=== PATIENT | female | born 1990 | race Caucasian/White ===

== ENCOUNTER 2023-10-20 00:16 | Inpatient (IN) | payer BC, SELFPAY ==
[2023-10-19 17:52] VITALS: BP 128/91
[2023-10-19 18:44] VITALS: BP 134/78; BMI 37.2
[2023-10-19] MEDS: NSS 1000 IV ×2 (19:38→21:44)
[2023-10-19] MEDS: DUONEB 3 ML INH ×2 (19:40→21:12)
[2023-10-19] MEDS: DECADRON 10 MG IV (19:40)
[2023-10-19 19:51] LABS: % Basophils 0.6 % (0-2); % Eosinophils 2.1 % (0-6); % Immature Granulocytes 0.3 % (0-0.5); % Lymphocytes 6.3 % (20.5-51.1); % Monocytes 5.7 % (1.7-9.3); Absolute Basophils 0.1 10^3/uL (0-0.2); Absolute Eosinophils 0.2 10^3/uL (0-0.7); Absolute Lymphocytes 0.7 10^3/uL (1.2-3.4); Absolute Monocytes 0.7 10^3/uL (0.1-0.6); Absolute Neutrophils 9.8 10^3/uL (1.4-6.5); Hematocrit 38.4 % (37.0-47.0); Hemoglobin 13.5 g/dL (12.0-16.0); Mean Corp Hgb Conc. 35.2 g/dL (33.0-37.0); Mean Corpuscular Hgb 30.2 pg (27.0-31.0); Mean Corpuscular Volume 85.9 fL (81.0-99.0); Mean Platelet Volume 9.8 fL (7.4-10.4); Nucleated Red Blood Cells % 0 %; Platelet Count 201 10^3/uL (130-400); Red Blood Cell Count 4.47 10^6/uL (4.20-5.40); Red Cell Dist. Width 12.4 % (11.5-14.5); White Blood Cell Count 11.5 10^3/uL (4.8-10.8)
[2023-10-19 20:08] LABS: ALT (SGPT) 16 U/L (0-35); AST (SGOT) 19 U/L (14-36); Albumin 4.4 g/dl (3.5-5.0); Alkaline Phosphatase 58 U/L (38-126); Blood Urea Nitrogen 9 mg/dl (7-17); Calcium 9.7 mg/dl (8.4-10.2); Carbon Dioxide 22 mmol/L (22-30); Chloride 106 mmol/L (98-107); Estimated Creatinine Clearance > 125 ml/min; Glucose 103 mg/dl (70-99); Sodium 139 mmol/L (135-145); Total Bilirubin 0.6 mg/dl (0.2-1.3); Total Protein 7.4 g/dl (6.3-8.2); eGFR > 60.00
[2023-10-19] MEDS: ZITHROMAX 500 MG PO (21:12)
[2023-10-19] MEDS: ROCEPHIN 2000 MG IV (21:13)
--- NOTE | 2023-10-19 23:06 | ED.GENMED ---
History of Present Illness
General
Chief Complaint: Breathing Problem
Source: patient
Exam Limitations: none
Time Seen by Provider: 10/19/23 18:54
Nursing documentation reviewed up to this point in time: agreed with
Travel History
Have you had any contact with someone who has COVID-19?: No
Do you have any symptoms of coronavirus? Fever > 100 degrees, chills, cough, shortness of breath, sore throat, loss of taste or smell, muscle aches, or headache?: No
History of Present Illness
History of Present Illness:
33-year-old female presenting to the emergency department today with concerns of shortness of breath cough chest congestion worsening over the past few days noticing wheezing today went to urgent care sent to the ER for further assessment. Does
have a remote history of asthma.
Past History
Past History
ED Past Medical History: None
ED Past Surgical History: None
Social History
Tobacco: Non-smoker
Alcohol: None
Drug: None
Personal:
Living: with family
Employment: Employed
Family History
Family History: Unable to obtain (Daughter's been sick with ear infection GI illness)
Review of Systems
Review of Systems
Allergies reviewed?: Yes
All Other Systems: ROS reviewed and negative except as documented in HPI and ROS
Phy Exam
Physical Exam
Physical Exam:
GENERAL: Alert , in no apparent distress
EYE: pupils equal and reactive
NECK: Supple, no significant adenopathy.
ENT: o/p clr, mmm.
CARDIAC: Tachycardic, regular
LUNGS: Diffuse end expiratory wheezing
ABDOMEN: Soft, without focal tenderness, no r/g, no cvat
NEUROLOGICAL: Alert and oriented, no focal neuro deficits
SKIN: Warm and dry, skin intact.
MUSCULOSKELETAL: No edema, well perfused.
PSYCH: Normal and appropriate interaction.
Course
Orders/Labs/Results
Orders:
Orders
10/19/23 19:23
0.9% Sodium Chloride 1000 ml [Nss] 1,000 ml IV BOLUS
Dexamethasone Sod Phosphate [Decadron] 10 mg IV NOW STA
Ipratropium/Albuterol Sulfate [Duoneb] 3 ml INH R NOW STA
CR Chest - 2 Views Urgent
Comment:
Reason For Exam: cough fever
10/19/23 19:42
Complete Blood Count/With Diff Urgent
Comprehensive Metabolic Panel Urgent
HCG, Serum Qualitative Screen Urgent
Comment: ADD-ON
10/19/23 20:58
EKG [Electrocardiogram (*1)] Urgent
Reason for Study: Bradycardia / Tachycardia
Azithromycin [Zithromax] 500 mg PO NOW STA
CefTRIAXone [Rocephin] 2,000 mg IV NOW STA
Ipratropium/Albuterol Sulfate [Duoneb] 3 ml INH R NOW ONE
10/19/23 20:59
EKG- Treatment ONCE
10/19/23 21:11
Sterile Water [Sterile Water For Injection] 20 ml .ROUTE .STK-MED
10/19/23 21:36
0.9% Sodium Chloride 1000 ml [Nss] 1,000 ml IV BOLUS
10/19/23 23:06
Add On- LAB Urgent
Tests Added?: hcg serum
10/19/23 23:47
Procalcitonin Routine
PCT Algorithmm Indication: Respiratory
10/19/23 23:50
COVID-19 Antigen Urgent
Source: Nasal Swab
Influenza A+B Rapid Molecular Urgent
CONCHITA Source: Nasal Swab
Specimen Description:
10/20/23 00:02
CT Chest Pe Study Urgent
Reason For Exam: tachy sob
10/20/23 00:05
Admit/Transfer Patient As Directed
Co-Sign Provider:
Level of Care: Inpatient admission
Assign to:: Telemetry
Physician / Group: htay
Diagnosis: Acute asthmatic bronchitis with diffuse bronchospasm
Reason for Telemetry: Other
Other Reason for Telemetry: Acute asthmatic bronchitis with diffuse bronchospasm
Date to Stop Telemetry: 10/22/23
Time to Stop Telemetry: 11:00
Reason for Hospitalization: Acute asthmatic bronchitis with diffuse bronchospasm
Expected length of stay greater than two midnights?: Yes
ELOS- Estimated Length of Stay in days: 3
I certify the patient meets the requirements for IP care: Yes
10/20/23 00:06
Code Status As Directed
Resuscitation Status: Full Code
10/20/23 01:18
Acetaminophen [Tylenol] 650 mg PO Q4HPRN PRN
Bisacodyl [Dulcolax] 10 mg RECTAL [id number] PRN
Docusate W/Senna [Senokot-S] 1 tablet PO BIDPRN PRN
Ipratropium/Albuterol Sulfate [Duoneb] 3 ml INH R Q4HPRN PRN
Polyethylene Glycol Powder [Miralax] 17 grams PO DAILYPRN PRN
10/20/23 01:18
Activity As Directed
Activity Level: With Assistance
Vital Signs As Directed
Frequency: Per unit guidelines
DX Deep Vein Thrombosis Video Routine
10/20/23 Breakfast
Regular
At Your Request: Full Participation
MethylPREDNISolone PF [Solu-Medrol Pf] 40 mg IV Q6H
10/20/23 08:00
Ipratropium/Albuterol Sulfate [Duoneb] 3 ml INH R QID
10/20/23 18:00
Enoxaparin Sodium [Lovenox] 40 mg SC QPM
10/22/23 11:00
DC Protocol for Telemetry ONCE
Abnormal Lab Results
10/19/23
19:42
WBC 11.5 H 10^3/uL
(4.8-10.8)
Absolute Neuts (auto) 9.8 H 10^3/uL
(1.4-6.5)
Absolute Lymphs (auto) 0.7 L 10^3/uL
(1.2-3.4)
Absolute Monos (auto) 0.7 H 10^3/uL
(0.1-0.6)
Neutrophils % 85.0 H %
(42.2-75.2)
Lymphocytes % 6.3 L %
(20.5-51.1)
Creatinine 0.5 L mg/dL
(0.6-1.0)
Glucose 103 H mg/dl
(70-99)
10/19/23 19:42
10/19/23 19:42
Vital Signs
Initial and Last Documented VS:
Initial Vital Signs
Temp Pulse Resp BP Pulse Ox
98.5 F 117 22 128/91 94
10/19/23 17:52 10/19/23 17:52 10/19/23 17:52 10/19/23 17:52 10/19/23 17:52
Last Documented Vital Signs
Temp Pulse Resp BP Pulse Ox
98.1 F 108 18 143/89 94
10/20/23 07:20 10/20/23 07:20 10/20/23 07:20 10/20/23 07:20 10/20/23 07:20
MDM/Problems Addressed
MDM/Problems Addressed:
33-year-old female presenting to the emergency department today with concerns of shortness of breath cough chest congestion over the past few days. Denies specific fevers. Does have a remote history of asthma was seen in urgent care sent to the ER
for further assessment. Upon arrival here patient tachycardic but otherwise pulse ox in the low 90 labs showing white count of 11.5 otherwise unremarkable chest x-ray with possible signs of pneumonia patient was started on antibiotic. Otherwise
did have an expiratory wheeze and was started on DuoNeb as well as steroid. Patient was monitored here still with ongoing significant shortness of breath with any light exertion as well as ongoing tachycardia an hour and a half after most recent
nebulizer treatment. Concerning this additional imaging obtained for further assessment.
*Critical Care Note
Total Time (30-74mins, 75-104mins- exclusive of procedures): Not Applicable
ED Attending Note
-
Portions of this chart may have been created with voice recognition software.� Occasional wrong word or��sound alike� substitutions may have occurred due to the inherent limitations of voice recognition software.
Discharge Plan
Departure
Patient Disposition: Admit
Date of Disposition: 10/19/23
Time of Disposition: 23:42
Admit to: Telemetry
Admit to doctor: Htay
Presentation/result/management discussed w/ accepting MD/DO: Hospitalist
Patient with high blood pressure during this ER visit?: No
Condition: Good
Covid-19: Not Applicable
Discharge Problem:
Wheeze, Pneumonia
Interventions
Interventions:
*Risk Screen - Suicide Last Done: 10/19/23 17:52
*General Assessment Last Done: 10/19/23 17:52
*Neglect/Abuse Screening Last Done: 10/19/23 17:52
ED- Fall Risk Assessment Last Done: 10/20/23 01:10
*ED COVID-19 Vaccine History Last Done: 10/20/23 02:11
*Nursing Disposition Last Done: 10/20/23 01:10
ED- Cardiac Assessment Last Done: 10/19/23 18:47
ED- Pulmonary Assessment Last Done: 10/19/23 18:47
Discharge Date and Time
Discharge Date/Time: 10/20/23 01:15
[2023-10-19 23:17] LABS: HCG, Serum Qualitative Screen Negative
[2023-10-19 23:18] VITALS: BP 129/80
[2023-10-20] VITALS (8 sets, daily range): BP systolic 126–143; BP diastolic 70–89; BMI 35.8
--- NOTE | 2023-10-20 00:02 | HPS.HSE ---
Addendum entered and electronically signed by Harish Carmen MD 10/20/23 13:11:
Final CTC PE report
1. Patchy airspace disease within both lower lobes suspicious for multifocal pneumonia.
2. No gross evidence for pulmonary embolism. No right heart strain.
Addendum entered and electronically signed by Harish Carmen MD 10/20/23 01:32:
[facility] for PE report by [facility]
- No PE
- b/l patchy PNA
- on IV CFTZ and PO Z max
Original Note:
Family Physician
-
Family Physician: Juan Adkins
Chief Complaint
-
SoB and wheeze , sent form [facility]
History of Present Illness
HPI
33F non smoker , remote HX childhood exercised induced asthma sent to ER fron [facility] for evaluation asthma falre
Acute onset URTI symptoms such as cough , chest congestion
- for last few days
- NO known contact exposure wit Covid and flu
- productive cough wiith dark green sputume getting intermodal customer service green
- denied fever today
- associated chest discomfort
- onset of wheezing today
- evaluated at [facility] and sent DH ER
At ER
tachycardic
tachypneic
POx in mid 90s on RA
Medical History
Past Medical History
Past Medical History: Reports Asthma (remote HX )
Past Surgical History: Reports None
Social History
Tobacco: Non-smoker
Alcohol: None
Personal:
Living: With Family
Employment: Employed
Family History
Family History: Not pertinent
Allergies / Home Medications
Allergies reflects when Allergies were last updated in [facility].
Home Medications with original date entered in [facility]
Allergy/Medication List:
Allergies
Allergy/AdvReac Type Severity Reaction Status Date / Time
nickel Allergy Rash Verified 10/19/23 17:51
Home Medications
albuterol sulfate 2.5 mg/3 mL (0.083 %) solution for nebulization 2.5 mg (3 mL) inhalation Q4H PRN shortness of breath or wheezing #180 mL 04/07/23
Review of Systems
-
Constitutional: Reports No Symptoms
EENT: Reports No Symptoms
Respiratory: Reports See HPI, Cough and Trouble Breathing
Cardiac: Reports No Symptoms
Abdomen/GI: Reports No Symptoms
: Reports No Symptoms
Musculoskeletal: Reports No Symptoms
Skin: Reports No Symptoms
Neurological: Reports No Symptoms
Endocrine: Reports No Symptoms
Hematologic/Lymphatic: Reports No Symptoms
Psych: Reports No Symptoms
Physical Exam
Vital Signs
Vital Signs
Temp Pulse Resp BP Pulse Ox
98.3 F 113 26 129/80 94
10/19/23 23:18 10/19/23 23:40 10/19/23 23:18 10/19/23 23:18 10/19/23 23:40
Physical Exam
General: Other (loos sick )
HEENT: NormoCephalic, Anicteric and Moist mucous membranes
Respiratory: Other (symmetric AE , reducd BS , minimal exp wheeze on my exam in both chest )
Cardiac: S1/S2, Regular Rhythm and Tachycardia
Breast: Deferred by me
GI: Soft, Non Tender and Non Distended
Genito-urinary: Deferred by me
Musculoskeletal: No Edema
Skin: Warm and Dry
Psych: Calm
Laboratory Results
-
10/19/23 19:42
10/19/23 19:42
Laboratory Results
Total Bilirubin 0.6 mg/dl (0.2-1.3) 10/19/23 19:42
AST 19 U/L (14-36) 10/19/23 19:42
ALT 16 U/L (0-35) 10/19/23 19:42
Alkaline Phosphatase 58 U/L (38-126) 10/19/23 19:42
Data Reviewed
-
Diagnostic Radiology: Report Reviewed by me
CT Scan: Other (pending CTC PE protocol )
Lab Data: Labs Reviewed by me
Impression/Plan
-
Reviewed VS: afebrile tachycardic 110s normotensive tachypnic 20-26 POx mid 90s on RA
Data
WCC 11.5
Unremarkable BMP and LFTs
NEG HCG
Pending ( Covid Ag and Flu A & B)
Pending PCT
10/19/23 CXR: Faint opacity in the right lung base, atelectasis versus mild pneumonia.
Pending CTC PE protocol
NO PRIOR hospitalist admission:
ASSESSMENT & PLAN
Pending Rx reconciliation
Acute asthmatic bronchitis : Improving bronchospasm to ER Tx
Suspect evolving PNA at Rt Lung base: afebrile , productive colored sputum with leucocytosis. No fever
CXR : Faint opacity in the right lung base
Remote HX childhood exercised induced Asthma but not on regular INH
- Pending ( Covid Ag and Flu A & B)
- check PCT
- cont IV CFTZ and PO Z max for now
- IV Methylprednisone in place of Decadron
- DuoNeb qid and ORN
- O2 to keep POx > 94
- Pul consult
DVT Px: LMWH
Code: Full
IP TLM
[2023-10-20 00:59] LABS: COVID-19 Antigen Negative (Negative)
[2023-10-20 01:16] LABS: Procalcitonin < 0.05 ng/ml (0.0-0.25)
--- NOTE | 2023-10-20 02:07 | PTCARENOTE ---
Pt. received to 2S from ED via stretcher and able to walk to room bed with steady gait, however becoming dyspneic on exertion and coughing. Otherwise VSS, pt. A&Ox3, in NAD, o2 sat 93% on room air. Pt. oriented to room and unit policies, bed locked
and in lowest position, side rails in place, and call light within reach.
[2023-10-20] MEDS: DUONEB 3 ML INH ×5 (02:38→19:46)
[2023-10-20] MEDS: MELATONIN 5 MG PO (02:39)
[2023-10-20] MEDS: ROBITUSSIN DM 5 ML PO (02:41)
[2023-10-20] MEDS: SOLU-MEDROL PF 40 MG IV ×4 (05:58→23:58)
[2023-10-20] MEDS: FLUSH (NSS) 2 FLUSH IV ×2 (05:59→12:03)
--- NOTE | 2023-10-20 09:49 | CON.PUL ---
Consultation
Consultation Request
Date/Time Consultation Requested: 10/20/2023-8 AM
Date/Time Consultation Performed: 10/20/2023-8:15 AM
Requesting Provider: Hospitalist
Performing Provider: Dr. Li
Reason for Consultation: Pneumonia
Medical History
-
Chief Complaint: Shortness of breath
History of Present Illness:
33-year-old female with probable underlying asthma who is a lifelong non-smoker with history of pneumonia last year treated as an outpatient presented with pneumonia and asthma exacerbation-pulmonary consulted for pneumonia/asthma exacerbation and
10/20/23. She is feeling much improved. Yesterday she could not complete sentences. Her shortness of breath with exertion is also improved. She denies any chest pain, chest tightness, abdominal pain, reflux, productive cough, but admits to
wheezing. She does not complain of lower extremity edema or weakness.
Past Medical History
Past Medical History: None (Asthma. Pneumonia 2022.)
Social History
Tobacco: Non-smoker
Alcohol: None
Drug: None
Personal:
Living: With Family
Occupational Exposures: No known asbestos exposure
Environmental Exposures: No known tuberculosis exposure
Family History
Family History: Reviewed & Not Pertinent
Allergies / Home Medications
Allergies
Allergy/AdvReac Type Severity Reaction Status Date / Time
nickel Allergy Rash Verified 10/19/23 17:51
Home Medications
�Medication �Instructions �Recorded �Confirmed �Last Taken �Type
albuterol sulfate 2.5 mg/3 mL 2.5 mg (3 mL) inhalation Q4H PRN 04/07/23 10/19/23 Unknown Rx
(0.083 %) solution for nebulization shortness of breath or wheezing
#180 mL
Review of Systems
-
Unable to Obtain full review of systems at this time due to: Other (Per HPI)
Vitals / Labs / Diagnostic Testing
Vital Signs
Temp Pulse Resp BP Pulse Ox
98.1 F 108 18 143/89 94
10/20/23 07:20 10/20/23 07:20 10/20/23 07:20 10/20/23 07:20 10/20/23 07:20
Lab Data
10/19/23 19:42
10/19/23 19:42
Microbiology
10/20/23 00:33 Nasal Swab Influenza Types A & B (J[facility]AN) - Final
Negative for Influenza A & B, NAAT
Negative results must be combined with clinical observations
and patient history.
Nucleic Acid Amplification test (NAAT)performed on the
[employer] platform.
Diagnostic Testing:
Physical Exam
-
Exam:
Well-nourished and well-developed in no apparent distress
HEENT-atraumatic, normocephalic
Neck-supple, no JVD, no bruit
Heart-regular rate and rhythm-no murmurs, rubs or gallops
Chest with diminished breath sounds, prolonged expiratory time, right rare right basilar crackles and expiratory wheezes throughout
Back without tenderness
Abdomen-soft, nontender, nondistended, no hepatosplenomegaly
Extremities-no cyanosis, clubbing, edema and good peripheral pulses
Integument-intact, no rashes, lesions or ecchymosis
Neurology-alert and oriented, nonfocal motor and sensory exam
Assessment
-
33-year-old female with probable underlying asthma who is a lifelong non-smoker with history of pneumonia last year treated as an outpatient presented with pneumonia and asthma exacerbation-pulmonary consulted for pneumonia/asthma exacerbation and
10/20/23.
Assessment
Qmqtxopov-[id number]
Asthma-suspect mild intermittent with acute exacerbation
Leukocytosis-negative procalcitonin
Conditions present prior to admission:
Asthma
Pneumonia 2022
Obesity-BMI 36
Plan
Respiratory decompensation likely related to pneumonia with subsequent asthma exacerbation
Monitor for progression to severe exacerbation-appears to have turned the corner and unlikely to progress
Respiratory rate >30
Tachycardia >120
accessary muscle use
Inability to speak full sentences
Inability be supine
Pulsus paradox, etc.
Monitor PEF
Obtain ABG if necessary to assess for hypercapnia
Check cultures
Procalcitonin negative-clear infiltrates noted on CT chest
Continue empiric antibiotics including ceftriaxone and azithromycin to cover atypicals-finite course
Monitor leukocytosis
Supplemental oxygen as needed
High flow oxygen if needed
BiPAP/NIV if necessary-has not needed
Mucolytic's if needed
Mucus clearing devices if needed
Inhaled beta agonist
Inhaled muscarinic antagonist
Systemic steroids-initiated on methylprednisolone 40 mg IV every 6 hours-eventually changed to prednisone 40-60 mg with slow taper
Magnesium sulfate 2 g IV over 20 minutes if she does not improve
Extreme cases consider IV ketamine
Consider Heliox 70/30 or 80/20 if she does not improve
Eventually obtain allergy testing, IgE level, eosinophils, etc.
If asthma is difficult to control and she continues to have recurrent exacerbations requiring prednisone and then we would consider Biologics such as Xolair -anti-IgE, Nucala-IL-5 inhibitor, Dtyembv-VR-0 inhibitor, or Dupixent-I L4/13 inhibitor or
Tezspire
DVT prophylaxis-on Lovenox
Nutrition
Early mobilization
Outpatient pulmonary follow-up
Reviewed with nursing and primary team
Diagnostic data:
Chest x-ray 04/07/2023-NAD
Chest x-ray 10/19/2023-right lower lobe infiltrate
CT chest 10/20/2023-patchy airspace disease within lower lobe suspicious for multifocal pneumonia, no evidence for pulmonary embolism or right heart strain
Data Reviewed
-
EKG: Report reviewed by me
Radiology: Image personally visualized and interpreted and Report reviewed by me
CT Scan: Image personally visualized and interpreted and Report reviewed by me
Medical Tests (Nuc Med, Echo etc): Image personally visualized and interpreted
Labs: Labs reviewed by me
Old Records: Reviewed
Total Time Spent with Patient (in minutes): 65
--- NOTE | 2023-10-20 12:11 | CM ---
Initial assessment completed with patient with boyfriend in room. Patient lives with her parents and 4 y/o daughter in a 2 story home with B/B on 2nd and 1/2 bath on 1st, no steps to enter. Patient has a nebulizer machine that she uses prn, no
in-home services. 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 No history of psychiatric hospitalizations. Pharmacy is [facility] on in [place] and PCP is [facility]. Anticipate no needs at discharge.
[2023-10-20] MEDS: LOVENOX 40 MG SC (18:32)
[2023-10-20] MEDS: FLUSH (NSS) 1 FLUSH IV (18:32)
[2023-10-20] MEDS: ROCEPHIN 1000 MG IV (20:13)
[2023-10-20] MEDS: STERILE WATER FOR INJECTION 10 ML IV (20:14)
[2023-10-20] MEDS: ZITHROMAX 500 MG PO (20:14)
[2023-10-21 03:25] VITALS: BP 120/71
[2023-10-21] MEDS: DUONEB 3 ML INH ×3 (04:21→11:18)
[2023-10-21] MEDS: SOLU-MEDROL PF 40 MG IV ×2 (05:19→12:02)
[2023-10-21 07:10] VITALS: BP 142/85
--- NOTE | 2023-10-21 10:20 | W.PN.PUL.V3 ---
Today's Communication / Plan
-
Finite course of antibiotics
Increase activity
Continue nebulizers
Prednisone taper
Outpatient pulmonary follow-up
Assessment
-
33-year-old female with probable underlying asthma who is a lifelong non-smoker with history of pneumonia last year treated as an outpatient presented with pneumonia and asthma exacerbation-pulmonary consulted for pneumonia/asthma exacerbation and
10/20/23.
Assessment
Kntpecbnt-cwwjvszso-qpefonyb
Asthma-suspect mild intermittent with acute exacerbation
Leukocytosis-negative procalcitonin
Conditions present prior to admission:
Asthma
Pneumonia 2022
Obesity-BMI 36
Plan
Respiratory decompensation likely related to pneumonia with subsequent asthma exacerbation
Supplemental oxygen if needed-currently on room air-94% saturation
Incentive spirometry
Aspiration precautions
Mucolytic's
Nebulizers
Prednisone taper-slow taper over 2 weeks
Procalcitonin negative-clear infiltrates noted on CT chest
Finite course of empiric antibiotics
Monitor leukocytosis
Eventually obtain allergy testing, IgE level, eosinophils, etc.
If asthma is difficult to control and she continues to have recurrent exacerbations requiring prednisone and then we would consider Biologics such as Xolair -anti-IgE, Nucala-IL-5 inhibitor, Emzgdpj-RU-1 inhibitor, or Dupixent-I L4/13 inhibitor or
Tezspire
DVT prophylaxis-on Lovenox
Nutrition
Early mobilization
Patient much improved and no objections from a pulmonary perspective for potential discharge
Outpatient pulmonary follow-up
Reviewed with nursing
Diagnostic data:
Chest x-ray 04/07/2023-NAD
Chest x-ray 10/19/2023-right lower lobe infiltrate
CT chest 10/20/2023-patchy airspace disease within lower lobe suspicious for multifocal pneumonia, no evidence for pulmonary embolism or right heart strain
Subjective Data
-
Date of Service:
Date of Service: October 21, 2023
Chief Complaint: Pulmonary Follow Up and Dyspnea Follow Up
Subjective:
Feels better, slept better, still with some cough and wheeze, no chest pain or abdominal pain
Review of Systems
General: Other (Per HPI)
Objective Data
Data Reviewed
Vital Signs / I&O:
Vital Signs
Temp Pulse Resp BP Pulse Ox
97.4 F 92 16 142/85 95
10/21/23 07:10 10/21/23 07:22 10/21/23 07:22 10/21/23 07:10 10/21/23 07:22
Intake and Output
10/20/23 10/21/23 10/22/23
06:59 06:59 06:59
Intake Total 2520 / 2520
Output Total 400 / 400
Balance 2120 / 2120
SaO2: 95
Physical Exam
General: Respiratory Distress (n) and Comfortable
HEENT: Normocephalic, Anicteric and Moist Mucous Membranes
Cardiovascular: Regular Rhythm
Respiratory: Wheeze (Few expiratory), Crackles (n), Rhonchi (n), Non-Labored Respirations, Accessory Resp Muscle Use (n) and Stridor (n)
GI: Soft, Non Distended and Non Tender
Neurology: Awake, Alert and No Motor Deficits
Skin: Warm, Good Color, Cyanosis (n), Jaundice (n) and Rash (n)
Labs/Micro/Reports
Lab Data
10/19/23 19:42
10/19/23 19:42
Microbiology
10/20/23 00:33 Nasal Swab Influenza Types A & B ([facility]) - Final
Negative for Influenza A & B, NAAT
Negative results must be combined with clinical observations
and patient history.
Nucleic Acid Amplification test (NAAT)performed on the
[employer] platform.
[2023-10-21 11:10] VITALS: BP 128/86
--- NOTE | 2023-10-21 12:37 | W.PN.HOSP.TC ---
Today's Communication/Plan
-
d/c home
Assessment / Plan
Assessment / Plan
Acute asthma flare up
Community acquired Pneumonia
-Chest x-ray showing faint opacity in right lung base
-Uses albuterol inhaler, have not followed up with primary physician
-Maintained on IV Solu-Medrol and azithromycin
-Continue nebulizer therapy
-Subjectively better and will be discharged on tapering course of oral prednisone
-Patient to follow-up with pulmonology in office
DVT Px: LMWH
Code: Full
More than 30 minutes spent in discharge including
Final examination of the patient
Summarizing hospital stay
Instructions for continuing care to all relevant caregivers
Preparation of discharge records, prescriptions, and referral forms
Total time spent (in minutes): 38 mins
Anticipated Discharge: Today
Subjective/Interval History
-
Date of Service: October 21, 2023
breathing is better
no wheezing
not on o2
Objective Data
-
Vital Signs:
Vital Signs
Temp Pulse Resp BP Pulse Ox
98.4 F 100 20 128/86 94
10/21/23 11:10 10/21/23 11:10 10/21/23 11:10 10/21/23 11:10 10/21/23 11:10
I&O
10/20/23 10/21/23 10/22/23
06:59 06:59 06:59
Intake Total 2520 / 2520
Output Total 400 / 400
Balance 2119 / 2119
Review of Systems
-
Respiratory: Reports No Symptoms
Cardiac: Reports No Symptoms
Abdomen/GI: Reports No Symptoms
Physical Exam
-
General: No Apparent Distress and Comfortable
HEENT: Negative Oxygen
Respiratory: Clear to Auscultation
Cardiac: Regular Rhythm and S1/S2; Negative Murmur or Rub
GI: Soft, Nontender and Nondistended
Musculoskeletal: No Edema
Neuro: Awake, Alert, Oriented, No Motor Deficits and Nonfocal/Grossly Intact
Psych: Calm
--- NOTE | 2023-10-21 17:09 | W.DCSUMMARY ---
Discharge Summary
Discharge Data
Date of Admission: 10/20/23
Date of Discharge: 10/21/23
-
Pending Results: No
Hospital Course
Discharging Physician : Dr Rafi Milan
Disposition : Home
Primary care physician : Dr Juan Adkins
Principal Discharge diagnosis :
Asthma flareup
Community-acquired pneumonia
Chronic Discharge diagnosis :
Obesity
Hospital Course :
Patient is a 33-year-old female with mentioned past medical history came to ER with new onset of shortness of breath and dry cough. Patient have history of asthma and has been using albuterol inhaler. In ER patient had a chest x-ray which showed
new right lower lobe haziness suspicious of developing pneumonia. Patient also was noted to having significant wheezing on exam. Patient was considered to having developing community-acquired pneumonia and asthma flareup from it. Patient was
started on antibiotic was started on IV steroids and nebulizer therapy. Pulmonology was involved in care and was following the patient during the hospital stay. Patient symptoms improved in 48 hours and at discharge patient was transition to oral
tapering steroid course. Patient to follow-up with pulmonology in office.
Important imaging findings :
None
Procedure findings :
None
Discharge Plan
-
Patient Disposition: Home (Routine Discharge)
Discharge Diagnosis/Procedures: Asthma exacerbation, Community acquired pneumonia
Condition: Fair
Diet: Regular
Activity: As tolerated
Driving Restrictions: No driving
Bathing Restrictions: OK to Shower
Referrals:
Juan Adkins MD [Family Provider] - in one week
Al Li MD [Active] - in one to two weeks
(Per nurse practitioner
Eventual PFTs)
Prescriptions:
New
ipratropium-albuterol 0.5 mg-3 mg(2.5 mg base)/3 mL Solution For Nebulization
3 ml inhalation TIDPRN PRN (Reason: shortness of breath or wheezing) Qty: 90 0RF
prednisone 10 mg Tablet
See Rx Instructions .ROUTE .COMPLEX Qty: 30 0RF
Rx Instructions:
Take By Mouth:
40 mg daily x3 days, 30 mg daily x3 days,
20 mg daily x3 days, 10 mg daily x3 days.
albuterol sulfate 90 mcg/actuation aero powdr breath act w/sensor
2 inh inhalation Q4H PRN (Reason: shortness of breath or wheezing) Qty: 1 1RF
azithromycin 250 mg tablet
250 mg PO DAILY 4 Days Qty: 4 0RF
Discontinued
albuterol sulfate 2.5 mg /3 mL (0.083 %) solution for nebulization
2.5 mg inhalation Q4H PRN (Reason: shortness of breath or wheezing) Qty: 180 2RF
Discharge Orders:
Discharge Patient (As Directed); Ordered 10/21/23
Ordered By: Rafi Milan
Discharge Date and Time
Discharge Date/Time: 10/21/23 13:40
Print Language: BULGARIAN
== END 2023-10-21 13:40 | disposition home or self-care (01) | DRG 194 ==
LOC: 2 SOUTH 00:16
PROVIDERS: Physician Assistant; ADMITTING PHYSICIAN Internal Medicine; ATTENDING PHYSICIAN Hospitalist; EMERGENCY PHYSICIAN Emergency Medicine; FAMILY PHYSICIAN Family Medicine; OTHER PHYSICIAN Internal Medicine Critical Care Medicine
DX: J18.9 Pneumonia, unspecified organism (principal); J45.901 Unspecified asthma with (acute) exacerbation; E66.9 Obesity, unspecified; Z68.36 Body mass index [BMI] 36.0-36.9, adult; Z87.01 Personal history of pneumonia (recurrent); Z11.52 Encounter for screening for COVID-19
CPT/HCPCS: 71046; 71275; 80053; 84145; 84703; 85025; 87502; 87811; 93005; 94640; 96361; 96374; 96375; 99285; Q9967

== ENCOUNTER 2024-06-25 22:02 | Emergency (ER) | payer BC, SELFPAY ==
[2024-06-25 22:06] VITALS: BP 147/93
--- NOTE | 2024-06-25 22:19 | ED.GENMED ---
History of Present Illness
<ED Harris - Last Filed: 06/28/24 19:13>
General
Chief Complaint: Breathing Problem
Source: patient
Exam Limitations: none
Time Seen by Provider: 06/25/24 22:19
Nursing documentation reviewed up to this point in time: agreed with
History of Present Illness
History of Present Illness:
Patient is a 34-year-old female who presents to the ER for shortness of breath. Patient has a history of asthma and has been using her albuterol inhaler and nebs throughout the day without relief. She started with a cough last night of green
productive sputum and has had the chills. She woke up this morning feeling nauseous and lightheaded and could not catch her breath throughout the day.
She has no prior history of intubation. She is not on oral contraceptives. She does not smoke.
Her had flu last week
Past History
<ED Harris - Last Filed: 06/28/24 19:13>
Past History
ED Past Medical History: None
ED Past Surgical History: None
Social History
Tobacco: Non-smoker
Alcohol: None
Drug: None
Personal:
Living: with family
Employment: Employed
Family History
Family History: Unable to obtain (Daughter's been sick with ear infection GI illness)
Review of Systems
<ED Harris - Last Filed: 06/28/24 19:13>
Review of Systems
Allergies reviewed?: Yes
All Other Systems: ROS reviewed and negative except as documented in HPI and ROS
Constitutional: Reports fever
EENT: Reports no symptoms
Respiratory: Reports cough and trouble breathing
Cardiac: Reports no symptoms
ABD/GI: Reports no symptoms
Musculoskeletal: Reports no symptoms
Skin: Reports no symptoms
Neurological: Reports no symptoms
Psychiatric: Reports no symptoms
Phy Exam
<ED Harris - Last Filed: 06/28/24 19:13>
General Physical Exam
General Presentation: no apparent distress
General age: appears stated age
General Skin: warm and dry
General Habitus: normal
General Mental: alert
Cardiovascular Exam
Cardiovascular Exam: tachycardia
Pulmonary Exam
Pulmonary Exam: other (Decreased throughout with expiratory wheezing bilaterally)
Neurological Exam
Neurological Exam: alert and oriented x3
Musculoskeletal Exam
Musculoskeletal Exam: full ROM
Skin Exam
Skin Exam: normal color and warm/dry
Sepsis
<ED Harris - Last Filed: 06/28/24 19:13>
Sepsis Screening
Sepsis Assessment: Sepsis Ruled Out
Sepsis Screen
Sepsis Screen: Sepsis Ruled Out
Date: 06/28/24
Time: 19:13
Course
<ED Harris - Last Filed: 06/28/24 19:13>
Orders/Labs/Results
Orders:
Orders
06/25/24 22:10
CR Chest - 2 Views Urgent
Comment:
Reason For Exam: SOB
06/25/24 22:18
ECG [Electrocardiogram (*1)] Urgent
Reason for Study: Shortness of Breath
EKG- Treatment ONCE
06/25/24 22:26
Acetaminophen [Tylenol] 1,000 mg PO NOW STA
Dexamethasone Sod Phosphate [Decadron] 10 mg IV NOW STA
Ipratropium/Albuterol Sulfate [Duoneb] 3 ml INH R NOW STA
Ketorolac [Toradol] 15 mg IV NOW STA
06/25/24 22:27
0.9% Sodium Chloride 1000 ml [Nss] 1,000 ml IV BOLUS
06/25/24 22:35
COVID-19 Antigen Urgent
Source: Nasal Swab
Complete Blood Count/With Diff Urgent
Comprehensive Metabolic Panel Urgent
HCG, Serum Qualitative Screen Urgent
Lactic Acid Urgent
Influenza A+B Rapid Molecular Urgent
CONCHITA Source: Nasal Swab
Specimen Description:
06/25/24 23:40
Add On- LAB Urgent
Tests Added?: hcg qualitative
06/25/24 23:42
Oseltamivir Phosphate [Tamiflu] 75 mg PO NOW STA
Abnormal Lab Results
06/25/24
22:35
MPV 10.7 H fL
(7.4-10.4)
Absolute Neuts (auto) 7.4 H 10^3/uL
(1.4-6.5)
Absolute Lymphs (auto) 0.3 L 10^3/uL
(1.2-3.4)
Neutrophils % 89.0 H %
(42.2-75.2)
Lymphocytes % 3.5 L %
(20.5-51.1)
Sodium 134 L mmol/L
(135-145)
Glucose 104 H mg/dl
(70-99)
06/25/24 22:35
06/25/24 22:35
Vital Signs
Initial and Last Documented VS:
Initial Vital Signs
Temp Pulse Resp BP Pulse Ox
100.5 F H 137 30 147/93 98
06/25/24 22:06 06/25/24 22:06 06/25/24 22:06 06/25/24 22:06 06/25/24 22:06
Last Documented Vital Signs
Temp Pulse Resp BP Pulse Ox
100.5 F H 115 11 128/66 96
06/25/24 22:06 06/26/24 00:45 06/26/24 00:45 06/26/24 01:20 06/26/24 01:20
<Ariadna Davala, DO - Last Filed: 06/26/24 01:11>
Orders/Labs/Results
Orders:
Orders
06/25/24 22:10
CR Chest - 2 Views Urgent
Comment:
Reason For Exam: SOB
06/25/24 22:18
ECG [Electrocardiogram (*1)] Urgent
Reason for Study: Shortness of Breath
EKG- Treatment ONCE
06/25/24 22:26
Acetaminophen [Tylenol] 1,000 mg PO NOW STA
Dexamethasone Sod Phosphate [Decadron] 10 mg IV NOW STA
Ipratropium/Albuterol Sulfate [Duoneb] 3 ml INH R NOW STA
Ketorolac [Toradol] 15 mg IV NOW STA
06/25/24 22:27
0.9% Sodium Chloride 1000 ml [Nss] 1,000 ml IV BOLUS
06/25/24 22:35
COVID-19 Antigen Urgent
Source: Nasal Swab
Complete Blood Count/With Diff Urgent
Comprehensive Metabolic Panel Urgent
HCG, Serum Qualitative Screen Urgent
Lactic Acid Urgent
Influenza A+B Rapid Molecular Urgent
CONCHITA Source: Nasal Swab
Specimen Description:
06/25/24 23:40
Add On- LAB Urgent
Tests Added?: hcg qualitative
06/25/24 23:42
Oseltamivir Phosphate [Tamiflu] 75 mg PO NOW STA
Abnormal Lab Results
06/25/24
22:35
MPV 10.7 H fL
(7.4-10.4)
Absolute Neuts (auto) 7.4 H 10^3/uL
(1.4-6.5)
Absolute Lymphs (auto) 0.3 L 10^3/uL
(1.2-3.4)
Neutrophils % 89.0 H %
(42.2-75.2)
Lymphocytes % 3.5 L %
(20.5-51.1)
Sodium 134 L mmol/L
(135-145)
Glucose 104 H mg/dl
(70-99)
06/25/24 22:35
06/25/24 22:35
Vital Signs
Initial and Last Documented VS:
Initial Vital Signs
Temp Pulse Resp BP Pulse Ox
100.5 F H 137 30 147/93 98
06/25/24 22:06 06/25/24 22:06 06/25/24 22:06 06/25/24 22:06 06/25/24 22:06
Last Documented Vital Signs
Temp Pulse Resp BP Pulse Ox
100.5 F H 115 11 128/66 96
06/25/24 22:06 06/26/24 00:45 06/26/24 00:45 06/26/24 01:20 06/26/24 01:20
<ED Harris - Last Filed: 06/28/24 19:13>
MDM/Problems Addressed
Differential Diagnosis Includes:
Not limited to asthma exacerbation pneumonia influenza COVID
MDM/Problems Addressed:
Patient is a 34-year-old female asthmatic presents with chills cough difficulty breathing. Patient presents with decreased tight breath sounds with some expiratory wheezing low-grade temperature tachycardic. She used multiple doses of her
albuterol inhaler and albuterol neb today. She was given DuoNeb here in the ER with Tylenol and Decadron and on reevaluation feeling much better moving air much better. Patient is flu positive with history of asthma will give Tamiflu we did
discuss risks and benefits.
Will plan to discharge with Tamiflu prednisone she does have inhalers at home with close outpatient follow-up rest and supportive care
<ED Harris - Last Filed: 06/28/24 19:13>
*Critical Care Note
Total Time (30-74mins, 75-104mins- exclusive of procedures): Not Applicable
ED Attending Note
<ED Harris - Last Filed: 06/28/24 19:13>
-
Portions of this chart may have been created with voice recognition software.� Occasional wrong word or��sound alike� substitutions may have occurred due to the inherent limitations of voice recognition software.
<Ariadna Elliott DO - Last Filed: 06/26/24 01:11>
ED Attending Note
Patient seen and examined by attending physician: Yes
I performed the substantive portion of visit, reviewed & personally made and approve the management plan that is documented in note by myself or CHRISS.: Yes
I performed a history and physical exam of patient and discussed management with resident, I reviewed resident's note and agree with documented findings and plan of care.: Yes
ED Attending Note:
34-year-old female with history of asthma presenting for shortness of breath. Patient also noting chills and cough. She is been using her inhaler without relief. Vital signs significant for tachycardia and fever.
Patient seen and evaluated by nurse practitioner prior to my assessment. Patient noted to have significant wheezing and increased work of breathing, administered steroids and DuoNeb with subsequent improvement. Workup thus far is consistent with
influenza, likely contributing to acute asthma exacerbation. Patient's heart rate elevated after treatments, pending reassessment.
01:20 - On reassessment, heart rate has improved. No wheezing on lung exam. Feel stable for discharge with continued outpatient supportive therapy. Patient prescribed Tamiflu, steroids. Strict return precautions communicated and patient
verbalized understanding
Discharge Plan
Departure
Patient Disposition: Home (Routine Discharge)
Patient with high blood pressure during this ER visit?: Yes
Condition: Fair
Covid-19: Not Applicable
Discharge Problem:
Influenza A
Instructions: Flu in adults - Discharge instructions
Prescriptions:
New
oseltamivir [Tamiflu] 75 mg capsule
75 mg PO DAILY Qty: 9 0RF
prednisone 20 mg tablet
40 mg PO DAILY Qty: 10 0RF
No Action
ipratropium-albuterol 0.5 mg-3 mg(2.5 mg base)/3 mL Solution For Nebulization
3 ml inhalation TIDPRN PRN (Reason: shortness of breath or wheezing) Qty: 90 0RF
prednisone 10 mg Tablet
See Rx Instructions .ROUTE .COMPLEX Qty: 30 0RF
Rx Instructions:
Take By Mouth:
40 mg daily x3 days, 30 mg daily x3 days,
20 mg daily x3 days, 10 mg daily x3 days.
albuterol sulfate 90 mcg/actuation aero powdr breath act w/sensor
2 inh inhalation Q4H PRN (Reason: shortness of breath or wheezing) Qty: 1 1RF
azithromycin 250 mg tablet
250 mg PO DAILY 4 Days Qty: 4 0RF
Referrals:
NONE,* [Family Provider] -
Stand Alone Forms: Return to Work
Activity Restrictions/Additional Instructions:
As discussed stay well-hydrated and get plenty rest. You may alternate between Tylenol and ibuprofen. A prescription of Tamiflu was sent to pharmacy take as directed starting tomorrow.you were given the first dose here in the ER. In addition
please start prednisone tomorrow as well
Continue your nebulizers. Follow-up with your family doctor the next several days and return if any worsening of symptoms
Interventions
Interventions:
*Risk Screen - Suicide Last Done: 06/26/24 01:00
*General Assessment Last Done: 06/25/24 22:06
*Neglect/Abuse Screening Last Done: 06/25/24 23:03
ED- Fall Risk Assessment Last Done: 06/25/24 23:03
*ED COVID-19 Vaccine History Last Done: 06/25/24 23:03
*Nursing Disposition Last Done: 06/26/24 01:22
ED- Cardiac Assessment Last Done: 06/25/24 23:03
ED- Pulmonary Assessment Last Done: 06/25/24 23:03
Discharge Date and Time
Discharge Date/Time: 06/26/24 01:26
Print Language: SWEDISH
[2024-06-25 22:21] VITALS: BMI 37.5
[2024-06-25] MEDS: DUONEB 3 ML INH (22:43)
[2024-06-25] MEDS: TYLENOL 1000 MG PO (22:43)
[2024-06-25] MEDS: NSS 1000 IV (22:52)
[2024-06-25] MEDS: TORADOL 15 MG IV (22:53)
[2024-06-25] MEDS: DECADRON 10 MG IV (22:53)
[2024-06-25 22:54] LABS: Lactic Acid 1.4 mmol/L (0.7-2.0)
[2024-06-25 22:58] LABS: COVID-19 Antigen Negative (Negative)
[2024-06-25 23:00] VITALS: BP 133/76
[2024-06-25 23:04] LABS: ALT (SGPT) 17 U/L (0-35); AST (SGOT) 20 U/L (14-36); Albumin 4.9 g/dl (3.5-5.0); Alkaline Phosphatase 49 U/L (38-126); Blood Urea Nitrogen 14 mg/dl (7-17); Calcium 9.5 mg/dl (8.4-10.2); Carbon Dioxide 22 mmol/L (22-30); Chloride 101 mmol/L (98-107); Estimated Creatinine Clearance > 125 ml/min; Glucose 104 mg/dl (70-99); Potassium 4.4 mmol/L (3.5-5.1); Sodium 134 mmol/L (135-145); Total Bilirubin 0.7 mg/dl (0.2-1.3); Total Protein 7.5 g/dl (6.3-8.2); eGFR > 60.00
[2024-06-25 23:35] LABS: % Basophils 0.5 % (0-2); % Eosinophils 0.2 % (0-6); % Immature Granulocytes 0.4 % (0-0.5); % Lymphocytes 3.5 % (20.5-51.1); % Monocytes 6.4 % (1.7-9.3); Absolute Lymphocytes 0.3 10^3/uL (1.2-3.4); Absolute Monocytes 0.5 10^3/uL (0.1-0.6); Absolute Neutrophils 7.4 10^3/uL (1.4-6.5); Hematocrit 38.4 % (37.0-47.0); Hemoglobin 13.3 g/dL (12.0-16.0); Mean Corp Hgb Conc. 34.6 g/dL (33.0-37.0); Mean Corpuscular Hgb 30.2 pg (27.0-31.0); Mean Corpuscular Volume 87.1 fL (81.0-99.0); Nucleated Red Blood Cells % 0 %; Red Blood Cell Count 4.41 10^6/uL (4.20-5.40); Red Cell Dist. Width 12.1 % (11.5-14.5); White Blood Cell Count 8.3 10^3/uL (4.8-10.8)
[2024-06-25 23:36] LABS: Mean Platelet Volume 10.7 fL (7.4-10.4); Platelet Count 166 10^3/uL (130-400)
[2024-06-25] MEDS: TAMIFLU 75 MG PO (23:46)
[2024-06-26] VITALS: BP 129/67
[2024-06-26 00:55] LABS: HCG, Serum Qualitative Screen Negative
[2024-06-26 01:20] VITALS: BP 128/66
== END 2024-06-26 01:26 | disposition home or self-care (01) ==
LOC: EMR 22:02
PROVIDERS: Nurse Practitioner; EMERGENCY PHYSICIAN Student in an Organized Health Care Education/Training Program
DX: J10.1 Influenza due to other identified influenza virus with other respiratory manifestations (principal); J45.909 Unspecified asthma, uncomplicated
CPT/HCPCS: 99285; 96374; 96375; 96361; 94640; 71046; 80053; 83605; 84703; 85025; 87502; 87811; 93005